=== PATIENT | female | born 2000 | race Caucasian/White ===

== ENCOUNTER 2022-02-26 07:23 | Emergency (ER) | payer SELFPAY ==
[~2022-02-26] VITALS: Ht 167.6 cm; Wt 56.7 kg
--- NOTE | 2022-02-26 07:36 | NUR ---
TO ER BED 12. BIB [facility] FOUND HER ON THE STREERS, ADMITS TO USING COCAINE, XANAX +SI TOOK UNKNOWN AMOUNT OF OXYCODONE YESTERDAY PER PARAMEDICS. ATTACHED TO MONITOR AND PET RESORT CONCIERGE. PT PLACE ON 2L OF NASAL CANNULA, SATTING AT 99%. PT IS A&OX0 UPON ARRIVAL. BELONGING REMOVED, PLACED IN A HOSPITAL GOWN. AWAITING MD ORDERS.
--- NOTE | 2022-02-26 07:40 | NUR ---
PATIENT ARRIVED WITH IV ON HER L AC 20G. ADDITIONAL IV ESTABLIHSED R AC 18G, LABS DRAWN AND COLLECTED AT BEDSIDE.
--- NOTE | 2022-02-26 07:44 | NUR ---
URINE COLLECTED AND SENT.
--- NOTE | 2022-02-26 07:50 | NUR ---
DR AGUILAR AT BEDSIDE FOR EVAL
--- NOTE | 2022-02-26 07:50 | NUR ---
CALLED [facility] [phone] [facility] DO: GENETIC COUNSELLOR, EKG, BOLOS OF FLUIDS PRN OF ATIVAN FOR AGITATION. FOR OXY GIVE NARCAN MIN 4 HOURS OF OBS. LABS TY, ASA, ALCOHOL, UTS, CMP PREG CHECK.
--- NOTE | 2022-02-26 07:52 | NUR ---
COVID TEST COLLECTED AND SENT
[2022-02-26] MEDS ORDERED: ONDANSETRON HCL/PF 4 MG/2 ML VIAL ONE (07:54)
[2022-02-26] MEDS ORDERED: NALOXONE HCL 0.4 MG/ML AMPUL ONE ×2 (07:54→10:31)
[2022-02-26] MEDS ORDERED: ONDANSETRON HCL/PF 4 MG/2 ML VIAL IV ONE (08:00)
[2022-02-26] MEDS ORDERED: IV NS 0.9% 1,000 ML IV ONE ×2 (08:00→09:30)
[2022-02-26] MEDS ORDERED: NALOXONE HCL 0.4 MG/ML AMPUL IV ONE ×4 (08:00→11:30)
--- NOTE | 2022-02-26 08:02 | NUR ---
PT VERBALLY RESPONSIVE S/P NARCAN ADMIN; ABLE TO SPEAK W/ DR. AGUILAR.
--- NOTE | 2022-02-26 08:07 | NUR ---
TECH AT BEDSIDE FOR EKG
[2022-02-26 08:08] LABS: BASOPHILS % (AUTO) 0.6 % (0.0-2.0); EOSINOPHILS % (AUTO) 10.4 % (0.0-6.0); HEMATOCRIT 33 % (33-45); HEMOGLOBIN 11.4 g/dL (11.5-14.8); LYMPHOCYTES # (AUTO) 3.5 K/uL (0.8-4.8); LYMPHOCYTES % (AUTO) 43.9 % (20.0-44.0); MEAN CORPUSCULAR HGB CONC 34 g/dl (31.0-36.0); MEAN CORPUSCULAR VOLUME 90 fL (82-100); MONOCYTES # (AUTO) 0.7 K/uL (0.1-1.30); MONOCYTES % (AUTO) 8.7 % (2.0-12.0); NEUTROPHILS # (AUTO) 2.9 K/uL (1.8-8.9); NEUTROPHILS % (AUTO) 36.4 % (43.0-81.0); PLATELET COUNT (AUTO) 315 K/uL (150-450); WHITE BLOOD COUNT (AUTO) 7.9 K/uL (4.3-11.0)
[2022-02-26 08:11] LABS: BILIRUBIN,URINE NEGATIVE (NEGATIVE); COLOR,URINE YELLOW (YELLOW); LEUKOCYTE ESTERASE ,URINE NEGATIVE (NEGATIVE); NITRITE, URINE NEGATIVE (NEGATIVE); PROTEIN,URINE TRACE mg/dl (NEGATIVE); UGLUCOSE NEGATIVE (NEGATIVE); UROBILINOGEN,URINE 0.2 EU/dL (0.2)
[2022-02-26 08:12] LABS: CALCIUM, SERUM 8.3 mg/dL (8.5-10.1); CARBON DIOXIDE 33 mmol/L (21-32); CHLORIDE 106 mmol/L (98-107); CREATININE 1.1 mg/dL (0.6-1.3); GLUCOSE 139 mg/dL (74-106); POTASSIUM 3.6 mmol/L (3.5-5.1); SODIUM SERUM 143 mmol/L (136-145); UREA NITROGEN, BLOOD 21 mg/dL (7-18)
[2022-02-26 08:16] LABS: BACTERIA,URINE Few /HPF (None Seen); RBC,URINE 0-2 /HPF (0-2); SQUAMOUS EPITHELIAL CELL,UR Rare /HPF (None Seen)
[2022-02-26 08:16] LABS: ACETAMINOPHEN 1 ug/ml (10-30); ALANINE AMINOTRANSFERASE 20 U/L (12-78); ALBUMIN 3.4 g/dL (3.4-5.0); ALKALINE PHOSPHATASE 79 U/L (46-116); ASPARTATE AMINOTRANSFERASE 13 U/L (15-37); BILIRUBIN,DIRECT 0.1 mg/dL (0.0-0.2); BILIRUBIN,TOTAL 0.1 mg/dL (0.2-1.0); TOTAL PROTEIN, SERUM 6.5 g/dL (6.4-8.2)
[2022-02-26 08:17] LABS: ALCOHOL, BLOOD < 3 mg/dL (0-0)
[2022-02-26] MEDS ORDERED: NALOXONE PREFILLED SYRINGE 2 MG/2 ML SYRINGE ONE (11:21)
--- NOTE | 2022-02-26 16:54 | NUR ---
received a call from Kaleb from poison control and update provided in regards with the patient.
--- NOTE | 2022-02-26 17:37 | NUR ---
JOHN JEROME CALLED FOR RE-EVAL, ETA 1 HR
--- NOTE | 2022-02-26 19:35 | NUR ---
CHRISTIAN - CRISIS TEAM AT BEDSIDE FOR EVAL.
--- NOTE | 2022-02-27 05:53 | NUR ---
PT IN BED SLEEPING. VSS. RESP EVEN AND NONLABORED. SAFETY MEASURES IN PLACE. 1:1 SITTER AT PT'S BEDSIDE
--- NOTE | 2022-02-27 08:50 | NUR ---
BREAKFAST TRAY PROVIDED, KUN WELL
--- NOTE | 2022-02-27 10:28 | NUR ---
CALLED [facility]. SPOKE TO JOHN TO PRESENT CASE, [facility] WILL CALL US BACK.
[2022-02-27] MEDS ORDERED: BUPRENORPHINE HCL 2 MG TAB.SUBL SL ONE ×2 (19:30→19:44)
[2022-02-28] MEDS ORDERED: NALO4SPR BNOSTRILS (18:38)
--- NOTE | 2022-02-28 18:40 | NUR ---
IV removed. Catheter intact and site benign. Pressure and 4x4 applied to site. No bleeding noted.
--- NOTE | 2022-02-28 18:47 | NUR ---
Patient discharged to home in stable condition. Written and verbal after care instructions given. Patient verbalizes understanding of instruction.
[2022-02-28 18:48] VITALS: BP 117/72
== END 2022-02-28 18:48 | disposition home or self-care (01) ==
LOC: ER 07:27
DX: T40.2X1A Poisoning by other opioids, accidental (unintentional), initial encounter (principal); R06.89 Other abnormalities of breathing; R41.82 Altered mental status, unspecified; Y92.480 Sidewalk as the place of occurrence of the external cause; F19.10 Other psychoactive substance abuse, uncomplicated; F13.129 Sedative, hypnotic or anxiolytic abuse with intoxication, unspecified; F14.129 Cocaine abuse with intoxication, unspecified; Z20.822 Contact with and (suspected) exposure to COVID-19
CPT/HCPCS: 99291; 96374; 96361; 96375; 93005; 96376; 85025; 80048; 87086; 80076; 84703; 81001; 36415; 84702; 87426; 80143; 80320; 80307; J2310 ×3; J2405; J7030 ×2; C9803; G0480

== ENCOUNTER 2022-03-18 21:10 | Emergency (ER) | payer MEDICAID ==
[~2022-03-18] VITALS: Ht 162.6 cm; Wt 50.8 kg
[~2022-03-18 21:10] MED LIST: NALO4SPR BNOSTRILS
[2022-03-18 21:18] VITALS: BP 130/78
[2022-03-18] MEDS ORDERED: QUET50TA15 PO (21:19)
[2022-03-18] MEDS ORDERED: QUETIAPINE FUMARATE 25 MG TABLET ONE (21:21)
--- NOTE | 2022-03-18 21:25 | NUR ---
Patient discharged to home in stable condition. Written and verbal after care instructions given. Patient verbalizes understanding of instruction.
[2022-03-18] MEDS ORDERED: QUETIAPINE FUMARATE 25 MG TABLET PO SCH (21:30)
== END 2022-03-18 21:25 | disposition home or self-care (01) ==
LOC: ER 21:19
DX: F31.9 Bipolar disorder, unspecified (principal); Z76.0 Encounter for issue of repeat prescription; F17.210 Nicotine dependence, cigarettes, uncomplicated; Z79.899 Other long term (current) drug therapy